=== PATIENT | female | born 1990 | race Caucasian/White ===

== ENCOUNTER 2018-09-24 19:01 | Observation (INO) | payer BC ==
--- NOTE | 2018-09-24 20:00 | RAD ---
CHEST ONE VIEW: 09/24/18 at 8:23 p.m. HISTORY: Syncope. FINDINGS: The heart size is normal. The lungs are clear. The bony thorax is normal. IMPRESSION: Normal exam. POS: HETALH
[2018-09-24 20:19] LABS: #Basophils 0.1 thou/uL (0.0-0.2); #Eosinphils 0.1 thou/uL (0.0-0.7); #Lymphocytes 1.7 thou/uL (1.20-3.40); #Monocytes 0.3 thou/uL (0.11-0.59); #Neutrophils 2.5 thou/uL (1.40-6.50); %Basophils 1.3 % (0.0-1.0); %Eosinophils 1.9 % (0.0-10.0); %Lymphocytes 35.9 % (21.0-51.0); %Monocytes 7.2 % (0.0-10.0); %Neutrophils 53.8 % (42.0-75.0); Hemoglobin 13.2 g/dL (12.0-16.0); Mean Corpuscular HGB CONC 33.2 g/dL (32.0-36.0); Mean Corpuscular Hemoglobin 32.4 pg (27.0-31.0); Mean Corpuscular Volume 97.6 fL (78.0-98.0); Mean Platelet Volume 6.4 fL (7.4-10.4); Platelet Count 256 thou/uL (130-400); RBC Distribution Width 11.3 % (11.5-14.5); Red Blood Cell (RBC) Count 4.07 mill/uL (4.20-5.40); White Blood Cell (WBC) Count 4.7 thou/uL (4.8-10.8)
[2018-09-24 20:44] LABS: ALT (SGPT) 12 U/L (8-55); AST (SGOT) 17 U/L (5-34); Albumin 4.3 g/dL (3.5-5.0); Alkaline Phosphatase 83 U/L (40-150); Anion Gap 8 mmol/L (10-20); BUN (Urea Nitrogen) 9 mg/dL (7.0-18.7); Bilirubin, Total 0.2 mg/dL (0.2-1.2); Calc. Creatinine Clearance 0 mL/min (70-130); Calcium 9.2 mg/dL (7.8-10.44); Carbon Dioxide 31 mmol/L (22-29); Chloride 105 mmol/L (98-107); Estimated GFR-MDRD Greater than 90; Globulin 2.5 g/dL (2.4-3.5); Glucose 94 mg/dL (70-105); Potassium 4.1 mmol/L (3.5-5.1); Protein, Total 6.8 g/dL (6.0-8.3); Sodium 140 mmol/L (136-145)
[2018-09-24] MEDS ORDERED: Meclizine HCl 25 MG TAB ONE (22:25)
[2018-09-24] MEDS ORDERED: Metoclopramide HCl 10 MG/2 ML VIAL ONE (22:25)
[2018-09-25] MEDS ORDERED: Sodium Chloride 0.9% 1,000 ML IV SCH (10:30)
[2018-09-25 12:32] VITALS: BMI 23.4
[2018-09-25 12:38] VITALS: BP 113/71
--- NOTE | 2018-09-26 13:33 | SS ---
DATE OF ADMISSION: 09/24/2018 DATE OF DISCHARGE: 09/25/2018 DISCHARGE DIAGNOSES: 1. Syncope. 2. Pituitary adenoma status post resection. 3. Anxiety. HOSPITAL COURSE: The patient is a 28-year-old female who initially came into the hospital for her boyfriend who was having kidney stones. However, at that time, she had a syncopal episode. The patient stated that before her syncopal episode she felt unsteady, so she sat down and then had tunnel vision and had a syncopal episode. Given patient's history of adrenal insufficiency and pituitary adenoma, she was admitted in Obs. However, when I did her H and P, I spoke with a couple of her physicians. At that time, the decision was made to discharge her. I called Dr. Ann at [facility], who is the neurosurgeon. I spoke with his nurse, Eunice, who stated that the patient can follow up with them as an outpatient for an MRI, especially since we do not have any of her prior records. Also, I spoke with Dr. Ela Hercules, he is an endocrinology fellow at [facility] and stated that he went over the patient's history, and also her cortisol level in the morning was 11.50 and at night was 11.90 and also that the fact that she was not orthostatic. At this time, the decision was made to just give her some low-dose steroids for 9 days and then follow up with Endocrine as outpatient. The patient currently is not on any steroids since April-May. PAST MEDICAL HISTORY: As I mentioned; 1. Pituitary adenoma. 2. History of syncope. 3. Migraines. PAST SURGICAL HISTORY: She has had a tumor removal. SOCIAL HISTORY: She denies any alcohol use, drug use, or smoking history. She is a full code. She lives in [place] and works in [employer] REVIEW OF SYSTEMS: All negative except the ones mentioned above in the HPI. FAMILY HISTORY: No history of heart disease, cancers, or strokes. MEDICATIONS: She takes no prescription medications. ALLERGIES: SHE HAS NO KNOWN DRUG ALLERGIES. PHYSICAL EXAMINATION: VITAL SIGNS: Temperature 98.4, respiratory rate 16, pulse 74. Her orthostatics were as of the following. Lying was 118/81 with heart rate of 71, sitting was 117/76 with a heart rate of 76, she was a little dizzy, and standing up she was 146/80 with heart rate of 78, she was a little dizzy. GENERAL: She is awake, alert, and oriented x3. Does not appear in distress, has been walking around the hallway without any abnormalities. HEENT: Normocephalic, atraumatic. No lymphadenopathy noted. Pupils are equal and reactive to light. LUNGS: Clear to auscultation. No rhonchi or wheezes noted. CV: S1 and S2 present. No murmurs, rubs, or gallops. ABDOMEN: Soft and nontender. Bowel sounds are present x2. EXTREMITIES: No edema. Pedal pulses are present x2. NEUROLOGIC: No focal deficits noted. SKIN: No cuts, lesions, or bruises noted. PSYCHIATRIC: She is oriented to time, person, and place. LABORATORY DATA: WBC of 4.7, hemoglobin of 13.2, hematocrit of 39.7, platelets of 256. Chemistry; sodium of 140, potassium of 4.1, BUN of 9, creatinine 0.74. Her cortisol level as I mentioned last night was 11.90 at 8:00 p.m., and this morning at 8 it was 11.50. Troponin x1 was negative. EKG, normal sinus rhythm. ASSESSMENT AND PLAN: The patient is a 28-year-old female who initially presented to the hospital for her boyfriend; however, had a syncopal episode. 1. Syncope, possibly due to vasovagal. She will follow up with her neurosurgeon and with Endocrine as an outpatient. She will be given a prescription for an MRI to be done, the patient was informed about this. She will also be given a steroid taper and follow up with Endocrinology. Her medications will be Claritin that she takes at home over the counter. She is going to take prednisone 20 daily for 3 days, then 10 mg daily for 3 days and then 5 mg daily for 3 days, and then stop. She was advised to take that with food. Job ID: [id number]
--- NOTE | 2018-09-28 15:36 | EKG ---
Test Reason : Blood Pressure : / mmHG Vent. Rate : 075 BPM Atrial Rate : 075 BPM P-R Int : 090 ms QRS Dur : 082 ms QT Int : 396 ms P-R-T Axes : -05 067 049 degrees QTc Int : 442 ms Sinus rhythm with short MT Otherwise normal ECG Confirmed by KURT CASTELLON ([id number]), production editor SHAREE GARCIA ([id number] on 09/28/2018 3:35:44 PM Referred By: Confirmed By:KURT CASTELLON
== END 2018-09-25 16:22 | disposition home or self-care (01) ==
LOC: ERS 19:01 → 2SW 21:53 → ERHOLD 22:14 → 2SW 09-25 12:15
PROVIDERS: ADMIT Family Medicine; ATTEND Family Medicine
DX: R55 Syncope and collapse (principal); D35.2 Benign neoplasm of pituitary gland; F41.9 Anxiety disorder, unspecified; G43.909 Migraine, unspecified, not intractable, without status migrainosus; Z88.2 Allergy status to sulfonamides; Z79.899 Other long term (current) drug therapy; Z98.890 Other specified postprocedural states
CPT/HCPCS: 36415; 71045; 80053; 82533; 84484; 85025; 93005; 96361; 96365; G0378; J2765